=== PATIENT | male | born 1980 | race Caucasian/White ===

== ENCOUNTER 2022-10-31 07:09 | Emergency (ER) | payer OTHER ==
--- NOTE | 2022-10-31 07:29 | ED ---
Fall HPI - General Chief Complaint: Fall Stated Complaint: fall Time Seen by Provider: 10/31/22 07:26 Source: patient, RN notes reviewed Mode of arrival: ambulatory Limitations: no limitations - History of Present Illness Initial Comments: This is a 42 year old male who presents to the emergency department for a fall. States that he fell down 14 carpeted stairs approximately 35 minutes prior to arrival. States that when he stepped down, his heel hit the back of the step, he missed 3-4 steps, and then fell down the rest of the way. Denies hitting his head or any loss of consciousness. He is not on any blood thinners. Currently complaining of pain to the left shoulder and elbow. Denies hitting his head or any loss of consciousness. Denies any fevers, chills, sore throat, cough, dyspnea, chest pain, palpitations, abdominal pain, nausea, vomiting, diarrhea, back pain, or headaches. MD Complaint: fall Fall From: standing Place Fall Occurred: home Loss of Consciousness: none Prolonged Down Time?: no Symptoms Prior to Fall: none Location - Extremities: Left: Shoulder, Arm, Elbow Context: tripped/slipped - Related Data Previous Rx's Medication Instructions Recorded Ibuprofen 600 mg PO Q6H PRN #30 tab 10/31/22 Allergies Allergy/AdvReac Type Severity Reaction Status Date / Time No Known Allergies Allergy Verified 10/31/22 07:30 Review of Systems ROS Statement: Those systems with pertinent positive or pertinent negative responses have been documented in the HPI. ROS Other: All systems not noted in ROS Statement are negative. General Exam Limitations: no limitations General appearance: alert, in no apparent distress Head exam: Present: atraumatic, normocephalic, normal inspection Respiratory exam: Present: normal lung sounds bilaterally. Absent: respiratory distress, wheezes, rales, rhonchi, stridor Cardiovascular Exam: Present: regular rate, normal rhythm, normal heart sounds. Absent: systolic murmur, diastolic murmur, rubs, gallop, clicks Neurological exam: Present: alert, oriented X3, CN II-XII intact Psychiatric exam: Present: normal affect, normal mood Skin exam: Present: warm, dry, intact, normal color. Absent: rash Course Vital Signs 10/31/22 07:27 Temperature 98.2 F Pulse Rate 75 Respiratory 18 Rate Blood Pressure 154/92 O2 Sat by Pulse 100 Oximetry Medical Decision Making - Medical Decision Making This is a 42 year old male who presents to the emergency department for a fall. Was pt. sent in by a medical professional or institution? @ -No Did you speak to anyone other than the patient for history? @ -No Did you review nursing and triage notes? @ -Agree, accurate with regards to the patient's symptoms. Were old charts reviewed? @ -No Differential Diagnosis? @ -Fracture, dislocation, contusion, tendinitis, AC joint separation, rotator cuff tear, this is not meant to be an all-inclusive list. X-rays interpreted by me (1pt min.)? @ -X-ray of the chest, left elbow, and left shoulder obtained. My interpretation of the chest x-ray identifies no rib fractures. My interpretation of the x-ray of the left elbow identifies no acute fractures or dislocations. My interpretation of the left shoulder x-ray reveals an AC joint separation. What testing was considered but not performed? (CT, X-rays, U/S, labs)? Why? @ -None What meds were considered but not given? Why? @ -None Did you discuss the management of the patient with other professionals? @ -No Did you reconcile home meds? @ -No Was smoking cessation discussed for >3mins.? @ -No Was critical care preformed (if so, how long)? @ -No Were there social determinants of health that impacted care today? How? (Homelessness, low income, unemployed, alcoholism, drug addiction, transportation, low edu. Level, literacy, decrease access to med. care, [facility], rehab)? @ -Hx of drug addiction. Was there de-escalation of care discussed even if they declined? (Discuss DNR or withdrawal of care, Hospice)? @ -No What co-morbidities impacted this encounter? (DM, HTN, Smoking, COPD, CAD, Cancer, CVA, Hep., AIDS, mental health diagnosis, sleep apnea, morbid obesity)? @ -None Was patient admitted / discharged? @ -Discharged. X-rays of the chest, left elbow, and left shoulder obtained. Findings consistent with a grade 1 AC joint separation. Patient was given IM Toradol, which he states dulled the pain. Narcotics avoided due to the patient's history of drug abuse. Findings discussed with the patient, in that this often heals on its own, however it may take several weeks. He is instructed to apply ice and take anti-inflammatories. Rx for ibuprofen provided with dosing instructions reviewed. He is advised to alternate taking this with Tylenol. Advised that moving the shoulder will hurt, and he should be cautious with any excessive movements. However, he needs to avoid complete restriction of movement due to the risk of a frozen shoulder. Information for orthopedic follow-up provided, he is instructed to contact them for an appointment. Drug Therapy requiring intensive monitoring for toxicity (Heparin, Nitro, Insulin, Cardizem)? @ -None Were any procedures done? @ -None Diagnosis/symptom? @ -Left AC joint separation Acute, or Chronic, or Acute on Chronic? @ -Acute Uncomplicated (without systemic symptoms) or Complicated (systemic symptoms)? @ -Uncomplicated Side effects of treatment? @ -None Exacerbation, Progression, or Severe Exacerbation] @ -Not applicable Poses a threat to life or bodily function? @ -Will impact his ability to move his left shoulder. Return precautions reviewed in depth, the patient is instructed to return to the emergency department with any new, worsening, or concerning symptoms. Patient verbalized understanding. This case was discussed in detail with the attending ED physician, Dr. Pascal. Presentation, findings, and treatment plan discussed in detail as well. - Radiology Data Radiology results: report reviewed, image reviewed Disposition Clinical Impression: Separation of left acromioclavicular joint, type 1 Disposition: HOME SELF-CARE Instructions (If sedation given, give patient instructions): Acromioclavicular Separation (ED), How to Use a Sling (ED) Additional Instructions: Return to the emergency department with any new, worsening, or concerning symptoms. You can take the ibuprofen up to every 6 hours as needed for pain. You can also purchase it [id number] if you run out. Please alternate taking this with Tylenol. Apply ice for 15-20 minutes every 2-3 hours. Contact orthopedics as listed below for a follow up appointment and reevaluation of symptoms. Follow up with your primary care provider in 1-2 days. Prescriptions: Ibuprofen 600 mg PO Q6H PRN #30 tab PRN Reason: Pain Is patient prescribed a controlled substance at d/c from ED?: No Referrals: None,Stated [Primary Care Provider] - 1-2 days Ed oCle MD [Medical Doctor] - 1-2 days
[2022-10-31 07:30] VITALS: TEMP 98.2
[2022-10-31] MEDS ORDERED: KETOROLAC 15 MG/ML 1 ML VIAL IM STA (07:33)
--- NOTE | 2022-10-31 08:25 | XR ---
EXAMINATION TYPE: XR chest 2V DATE OF EXAM: 10/31/2022 COMPARISON: None INDICATION: Fall down stairs TECHNIQUE: Frontal and lateral views of the chest are obtained. FINDINGS: The heart size is normal. The pulmonary vasculature is normal. The lungs are clear. No pneumothorax is evident. No displaced rib fractures are. IMPRESSION: 1. No acute posttraumatic changes within the thorax. 2. Acromioclavicular joint separation left shoulder. Please see left shoulder dictation same date.
--- NOTE | 2022-10-31 08:27 | XR ---
EXAMINATION TYPE: XR shoulder complete LT DATE OF EXAM: 10/31/2022 COMPARISON: NONE HISTORY: Pain, fall down stairs TECHNIQUE: Shoulder examined in 3 projections FINDINGS: The humeral head articulates with the glenoid. There is separation of the acromioclavicular junction measuring 1.1 cm. Normal less than 1.0 cm. This appears to change size during the examination. There are small calcifications at the distal clavicle which appear to be chronic. Depression of the acromion in relation to the distal clavicle is evident some images. Findings can be compatible with acute left acromioclavicular joint separation. No acute fractures are evident. A follow up study can be performed 7-10 days from acute trauma for continued pain. IMPRESSION: 1. Grade 1 Acromioclavicular joint separation.
--- NOTE | 2022-10-31 08:28 | XR ---
EXAMINATION TYPE: XR elbow complete LT DATE OF EXAM: 10/31/2022 COMPARISON: None HISTORY: Fall down stairs, pain TECHNIQUE: 3 view left elbow FINDINGS: Anterior fat pad is normal. No elevation of posterior fat pad is evident. Radius aligns nor emil with the humerus. Soft tissues appear within normal limits. Follow up exams can be performed 7-10 days from acute trauma for continued pain. IMPRESSION: 1. No acute osseous abnormality of the left elbow
[2022-10-31 14:02] VITALS: BP 141/96; PULSE 64; RESP 14
== END 2022-10-31 09:10 | disposition home or self-care (01) ==
LOC: EC 07:09
DX: S43.102A Unspecified dislocation of left acromioclavicular joint, initial encounter (principal); W10.9XXA Fall (on) (from) unspecified stairs and steps, initial encounter
CPT/HCPCS: 73030; 73080; 71046; 99283; 96372; J1885

== ENCOUNTER 2023-02-16 12:23 | Observation (INO) | payer OTHER ==
[2023-02-16] MEDS ORDERED: ASPIRIN 81 MG PO STA (13:21)
[2023-02-16] MEDS ORDERED: SODIUM CHLORIDE 0.9% 1,000 ML IV STA (13:21)
--- NOTE | 2023-02-16 13:58 | ED ---
General Adult HPI - General Chief complaint: Recheck/Abnormal Lab/Rx Stated complaint: High BP Time Seen by Provider: 02/16/23 12:57 Source: patient, RN notes reviewed Mode of arrival: ambulatory Limitations: no limitations - History of Present Illness Initial comments: 43-year-old male presents emergency Department chief complaint of hypertension, chest discomfort. Patient states she started having chest pressure last night he states his blood pressure was elevated. Patient recently started on lisinopril 5 mg. Patient states that his chest pressure has subsided he states he still feels off his blood pressure is noted to be elevated. No prior cardiac disease. He states that his blood pressure is elevated secondary to drug abuse. Clean for a while. Patient denies any fevers chills currently symptoms. - Related Data Home Medications Medication Instructions Recorded Confirmed SUMAtriptan succinate [Imitrex] 50 mg PO DAILY PRN 02/16/23 02/16/23 lisinopriL [Zestril] 5 mg PO DAILY 02/16/23 02/16/23 Allergies Allergy/AdvReac Type Severity Reaction Status Date / Time No Known Allergies Allergy Verified 02/16/23 12:38 Review of Systems ROS Statement: Those systems with pertinent positive or pertinent negative responses have been documented in the HPI. ROS Other: All systems not noted in ROS Statement are negative. Past Medical History Past Medical History: Hypertension History of Any Multi-Drug Resistant Organisms: None Reported Additional Past Surgical History / Comment(s): right shoulder, oral surgery, facial surgery. Past Psychological History: No Psychological Hx Reported Smoking Status: Vaper Past Alcohol Use History: None Reported Past Drug Use History: Cocaine, Methamphetamine General Exam Limitations: no limitations General appearance: alert, in no apparent distress Head exam: Present: atraumatic, normocephalic, normal inspection Eye exam: Present: normal appearance, PERRL, EOMI. Absent: scleral icterus, conjunctival injection, periorbital swelling ENT exam: Present: normal exam, normal oropharynx, mucous membranes moist Neck exam: Present: normal inspection, full ROM. Absent: tenderness, meningismus, lymphadenopathy Respiratory exam: Present: normal lung sounds bilaterally. Absent: respiratory distress, wheezes, rales, rhonchi, stridor Cardiovascular Exam: Present: regular rate, normal rhythm, normal heart sounds. Absent: systolic murmur, diastolic murmur, rubs, gallop, clicks GI/Abdominal exam: Present: soft, normal bowel sounds. Absent: distended, tenderness, guarding, rebound, rigid Course Vital Signs 02/16/23 02/16/23 02/16/23 12:38 14:02 14:12 Temperature 98.8 F 98.0 F Pulse Rate 83 67 Pulse Rate [ 61 Drug Regulatory Affairs Specialist ] Respiratory 18 18 Rate Blood Pressure 159/131 162/119 O2 Sat by Pulse 98 97 Oximetry 02/16/23 14:54 Temperature 97.8 F Pulse Rate 59 L Pulse Rate [ Drug Regulatory Affairs Specialist ] Respiratory 19 Rate Blood Pressure 163/111 O2 Sat by Pulse 100 Oximetry EKG Findings - EKG Comments: EKG Findings:: EKG performed at 14:06 sinus rhythm rate of 60 TX 160 QRS 15 QT/QTC 408/408 - EKG Results: EKG: interpreted by KATIE Medical Decision Making - Medical Decision Making Was pt. sent in by a medical professional or institution (, PA, DEPUTY JAILER, urgent care, hospital, or halfway...) When possible be specific @ -No Did you speak to anyone other than the patient for history (EMS, parent, family, police, friend...)? What history was obtained from this source @ -No Did you review nursing and triage notes (agree or disagree)? Why? @ -I reviewed and agree with nursing and triage notes Were old charts reviewed (outside hosp., previous admission, EMS record, old EKG, old radiological studies, urgent care reports/EKG's, halfway records)? Report findings @ -No old charts were reviewed Differential Diagnosis (chest pain, altered mental status, abdominal pain women, abdominal pain men, vaginal bleeding, weakness, fever, dyspnea, syncope, headache, dizziness, GI bleed, back pain, seizure, CVA, palpatations, mental health, musculoskeletal)? @ -Differential Chest Pain: Stable Angina, Unstable Angina, STEMI, NSTEMI Aortic Dissection, Pneumothorax, Musculoskeletal, Esophageal Spasm GERD, Cholecystitis, Pancreatitis, Zoster, this is not meant to be an all-inclusive list. le EKG interpreted by me (3pts min.). @ -As above X-rays interpreted by me (1pt min.). @ -Chest x-ray shows no acute process. CT interpreted by me (1pt min.). @ -None done U/S interpreted by me (1pt. min.). @ -None done What testing was considered but not performed or refused? (CT, X-rays, U/S, labs)? Why? @ -None What meds were considered but not given or refused? Why? @ -None Did you discuss the management of the patient with other professionals (professionals i.e. , PA, DEPUTY JAILER, lab, RT, psych nurse, social professionals, data warehousing specialist, teacher, senior escrow officer, heel caser)? Give summary @ -No Was smoking cessation discussed for >3mins.? @ -No Was critical care preformed (if so, how long)? @ -No Were there social determinants of health that impacted care today? How? (Homelessness, low income, unemployed, alcoholism, drug addiction, transportation, low edu. Level, literacy, decrease access to med. care, group home, rehab)? @ -No Was there de-escalation of care discussed even if they declined (Discuss DNR or withdrawal of care, Hospice)? DNR status @ -No What co-morbidities impacted this encounter? (DM, HTN, Smoking, COPD, CAD, Cancer, CVA, ARF, Chemo, Hep., AIDS, mental health diagnosis, sleep apnea, morbid obesity)? @ -Drug history, smoking history Was patient admitted / discharged? Hospital course, mention meds given and route, prescriptions, significant lab abnormalities, going to OR and other pertinent info. @ -Admitted patient's had recent hypertensive issues, increasing chest pain. Patient be admitted for cardiac rule out. Undiagnosed new problem with uncertain prognosis? @ -No Drug Therapy requiring intensive monitoring for toxicity (Heparin, Nitro, Insulin, Cardizem)? @ -No Were any procedures done? @ -No Diagnosis/symptom? @ -Chest pain, hypertension Acute, or Chronic, or Acute on Chronic? @ -Acute Uncomplicated (without systemic symptoms) or Complicated (systemic symptoms)? @ -Uncomplicated Side effects of treatment? @ -No Exacerbation, Progression, or Severe Exacerbation? @ -No Poses a threat to life or bodily function? How? (Chest pain, [place], [place], pneumonia, PE, COPD, DKA, ARF, appy, cholecystitis, CVA, Diverticulitis, Homicidal, Suicidal, threat to staff... and all critical care pts) @ -No - Lab Data Result diagrams: 02/16/23 13:52 02/16/23 13:52 Lab Results 02/16/23 02/16/23 02/16/23 Range/Units 13:52 13:52 13:52 WBC 7.3 (3.8-10.6) k/uL RBC 5.44 (4.30-5.90) m/uL Hgb 16.4 (13.0-17.5) gm/dL Hct 47.6 (39.0-53.0) % MCV 87.5 (80.0-100.0) fL MCH 30.2 (25.0-35.0) pg MCHC 34.5 (31.0-37.0) g/dL RDW 13.0 (11.5-15.5) % Plt Count 331 (150-450) k/uL MPV 7.9 Neutrophils % 57 % Lymphocytes % 31 % Monocytes % 6 % Eosinophils % 4 % Basophils % 1 % Neutrophils # 4.2 (1.3-7.7) k/uL Lymphocytes # 2.3 (1.0-4.8) k/uL Monocytes # 0.5 (0-1.0) k/uL Eosinophils # 0.3 (0-0.7) k/uL Basophils # 0.0 (0-0.2) k/uL PT 10.6 (9.0-12.0) sec INR 1.0 (<1.2) APTT 26.7 (22.0-30.0) sec D-Dimer 0.25 (<0.60) mg/L FEU Sodium 138 (137-145) mmol/L Potassium 4.7 (3.5-5.1) mmol/L Chloride 104 (98-107) mmol/L Carbon Dioxide 22 (22-30) mmol/L Anion Gap 12 mmol/L BUN 15 (9-20) mg/dL Creatinine 0.83 (0.66-1.25) mg/dL Est GFR (CKD-EPI)AfAm >90 (>60 ml/min/1.73 sqM) Est GFR (CKD-EPI)NonAf >90 (>60 ml/min/1.73 sqM) Glucose 93 (74-99) mg/dL Calcium 9.3 (8.4-10.2) mg/dL Magnesium 1.9 (1.6-2.3) mg/dL Total Bilirubin 0.6 (0.2-1.3) mg/dL AST 97 H (17-59) U/L ALT 143 H (4-49) U/L Alkaline Phosphatase 85 (38-126) U/L Troponin I (0.000-0.034) ng/mL Total Protein 7.7 (6.3-8.2) g/dL Albumin 4.4 (3.5-5.0) g/dL 02/16/23 Range/Units 13:52 WBC (3.8-10.6) k/uL RBC (4.30-5.90) m/uL Hgb (13.0-17.5) gm/dL Hct (39.0-53.0) % MCV (80.0-100.0) fL MCH (25.0-35.0) pg MCHC (31.0-37.0) g/dL RDW (11.5-15.5) % Plt Count (150-450) k/uL MPV Neutrophils % % Lymphocytes % % Monocytes % % Eosinophils % % Basophils % % Neutrophils # (1.3-7.7) k/uL Lymphocytes # (1.0-4.8) k/uL Monocytes # (0-1.0) k/uL Eosinophils # (0-0.7) k/uL Basophils # (0-0.2) k/uL PT (9.0-12.0) sec INR (<1.2) APTT (22.0-30.0) sec D-Dimer (<0.60) mg/L FEU Sodium (137-145) mmol/L Potassium (3.5-5.1) mmol/L Chloride (98-107) mmol/L Carbon Dioxide (22-30) mmol/L Anion Gap mmol/L BUN (9-20) mg/dL Creatinine (0.66-1.25) mg/dL Est GFR (CKD-EPI)AfAm (>60 ml/min/1.73 sqM) Est GFR (CKD-EPI)NonAf (>60 ml/min/1.73 sqM) Glucose (74-99) mg/dL Calcium (8.4-10.2) mg/dL Magnesium (1.6-2.3) mg/dL Total Bilirubin (0.2-1.3) mg/dL AST (17-59) U/L ALT (4-49) U/L Alkaline Phosphatase (38-126) U/L Troponin I <0.012 (0.000-0.034) ng/mL Total Protein (6.3-8.2) g/dL Albumin (3.5-5.0) g/dL Disposition Clinical Impression: Chest pain Disposition: ADMITTED IP TO THIS HOSP Condition: Fair Referrals: Carlos Bush MD [Primary Care Provider] - 1-2 days Time of Disposition: 15:52
[2023-02-16] MEDS ORDERED: NITROGLYCERIN SL TABS 0.4 MG TAB SUBLINGUAL STA (14:17)
--- NOTE | 2023-02-16 14:35 | XR ---
EXAMINATION TYPE: XR chest 2V DATE OF EXAM: 02/16/2023 COMPARISON: Chest x-ray October 31, 2022 HISTORY: Chest pain. TECHNIQUE: Frontal and lateral views of the chest are obtained. FINDINGS: There is no focal air space opacity, pleural effusion, or pneumothorax seen. The cardiac silhouette size is stable and within normal limits. The osseous structures are intact. Overlying EK G leads are now present. IMPRESSION: No acute process. No significant change from prior.
[2023-02-16 14:49] LABS: Basophils % (A) 1 %; Eosinophils # (A) 0.3 k/uL (0-0.7); Eosinophils % (A) 4 %; HCT 47.6 % (39.0-53.0); HGB 16.4 gm/dL (13.0-17.5); Lymphocytes # (A) 2.3 k/uL (1.0-4.8); Lymphocytes % (A) 31 %; MCH 30.2 pg (25.0-35.0); MCHC 34.5 g/dL (31.0-37.0); MCV 87.5 fL (80.0-100.0); Mean Platelet Volume 7.9; Monocytes # (A) 0.5 k/uL (0-1.0); Monocytes % (A) 6 %; Neutrophils # (A) 4.2 k/uL (1.3-7.7); Neutrophils % (A) 57 %; Platelet Count 331 k/uL (150-450); RBC 5.44 m/uL (4.30-5.90); WBC 7.3 k/uL (3.8-10.6)
[2023-02-16 14:51] LABS: Partial Thromboplastin Time 26.7 sec (22.0-30.0); Prothrombin Time 10.6 sec (9.0-12.0)
[2023-02-16 15:32] LABS: ALT 143 U/L (4-49); AST 97 U/L (17-59); African American GFR (CKD) >90 (>60 ml/min/1.73 sqM); Albumin 4.4 g/dL (3.5-5.0); Alkaline Phosphatase 85 U/L (38-126); Anion Gap 12 mmol/L; Blood Urea Nitrogen 15 mg/dL (9-20); Calcium 9.3 mg/dL (8.4-10.2); Carbon Dioxide 22 mmol/L (22-30); Chloride 104 mmol/L (98-107); Glucose 93 mg/dL (74-99); Magnesium 1.9 mg/dL (1.6-2.3); Non-African American GFR(CKD) >90 (>60 ml/min/1.73 sqM); Potassium 4.7 mmol/L (3.5-5.1); Sodium 138 mmol/L (137-145); Total Bilirubin 0.6 mg/dL (0.2-1.3); Total Protein 7.7 g/dL (6.3-8.2)
[2023-02-16] MEDS ORDERED: NITROGLYCERIN SL TABS 0.4 MG TAB SUBLINGUAL PRN (15:52)
[2023-02-16] MEDS ORDERED: ACETAMINOPHEN TAB 500 MG TAB PO STA (17:35)
[2023-02-16] MEDS ORDERED: SUMAtriptan succinate 50 MG TAB PO PRN (21:07)
[2023-02-16] MEDS: lisinopriL 20 MG TAB PO SCH (22:07)
[2023-02-17 08:16] VITALS: RESP 16
[2023-02-17] MEDS ORDERED: ACETAMINOPHEN TAB 325 MG TAB PO PRN (08:18)
[2023-02-17] MEDS: lisinopriL 20 MG TAB PO SCH (08:29)
[2023-02-17 08:55] LABS: Chol/HDL Ratio 3.73 Ratio; LDL Cholesterol,Calculated 83.8 mg/dL (0.0-131.0); VLDL Calculation 12.78 mg/dL (5.00-40.00)
[2023-02-17] MEDS ORDERED: ASPIRIN 325 MG TAB PO SCH ×2 (09:00)
[2023-02-17] MEDS ORDERED: lisinopriL 10 MG TAB PO SCH (09:00)
--- NOTE | 2023-02-17 10:32 | P.CRDCN ---
History of Present Illness Consult date: 02/17/23 Consult reason: chest pain History of present illness: History of present illness: This is a 43 year old male patient with past medical history of hypertension, migraine headaches, history of multi drug abuse and alcohol abuse. Patient denies having any previous cardiac history. We have been asked to evaluate the patient for chest pain. Patient complains of tightness across his chest he was not able to sleep because of it. Also complaining of headache. He felt that his heart was racing. When patient presented to the emergency center his blood pressure was 159/131. Patient was given higher dose of lisinopril 20 mg last evening and blood pressure this morning is 108/69. Patient does have some pressure to the chest with deep breathing and he continues to have a headache on evaluation this morning. He last used drugs and alcohol in April 2022 as well as he quit smoking in July 2022. Family history of both parents having coronary artery disease with stent placement in the 40s and 50s. EKG sinus rhythm with no acute ST changes Chest x-ray: No acute process CBC within normal limits. D-dimer 0.25. Electrolytes and renal function within normal limits. AST 97 and ALT 143. Troponin negative 3. Triglycerides 63, cholesterol 132, LDL 83, HDL 35. Home cardiac medications: Lisinopril 5 mg daily Review Of Systems: At the time of my evaluation: Constitutional: No fever, no chills. No weakness, fatigue or lethargy. EENT: Reports headache. No dizziness. Lungs: No shortness of breath, cough, no sputum production. No wheezing. Cardiovascular: Minimal chest pain, no lower extremity edema. No palpitations. No paroxysmal nocturnal dyspnea. No orthopnea. No lightheadedness or dizziness. No syncopal episodes. Abdominal: No abdominal pain. No nausea, vomiting. No diarrhea. No constipation. No bloody or tarry stools. Musculoskeletal: No myalgias. No muscle weakness, no frequent falls. No back pain. No neck pain. Integumentary: No wounds. No rash. No unusual bruising. Neurologic: No aphasia. No facial droop. No change in mentation. No head injury. Reports headache. Physical examination: Gen: This is a 43-year-old thin male. He is resting but appears to be comfortable and in no acute distress. VS: reviewed HEENT: Head is atraumatic, normocephalic. Pupils equal, round. Sclerae is anicteric. Patient edentulous. NECK: Supple. No JVD. . LUNGS: Clear to auscultation. No wheezes or rhonchi. No intercostal retractions. HEART: Regular rate and rhythm. No murmur. ABDOMEN: Soft No tenderness. EXTREMITIES: No pedal edema. No calf tenderness. NEUROLOGICAL: Patient is awake, alert and oriented x3. Assessment: Chest pain, acute coronary syndrome ruled out. Chest pain most likely musculoskeletal in etiology Hypertension urgency History of hypertension Migraine headaches History of multi drug and alcohol abuse History of tobacco use Plan: Continue lisinopril at 10 mg daily Obtain stress echocardiogram today Obtain 2-D echocardiogram and Doppler study to assess cardiac structure and function - report is pending If echocardiogram and stress test unremarkable, patient is cleared for discharge home from cardiology perspective. Thank you kindly for this consultation. Nurse practitioner note has been reviewed, I agree with documented findings and plan of care. Patient was seen and examined. Past Medical History Past Medical History: Hypertension History of Any Multi-Drug Resistant Organisms: None Reported Additional Past Surgical History / Comment(s): right shoulder, oral surgery, facial surgery. Past Psychological History: No Psychological Hx Reported Smoking Status: Vaper Past Alcohol Use History: None Reported Past Drug Use History: Cocaine, Methamphetamine Medications and Allergies Home Medications Medication Instructions Recorded Confirmed Type SUMAtriptan succinate [Imitrex] 50 mg PO DAILY PRN 02/16/23 02/16/23 History lisinopriL [Zestril] 5 mg PO DAILY 02/16/23 02/16/23 History Allergies Allergy/AdvReac Type Severity Reaction Status Date / Time No Known Allergies Allergy Verified 02/16/23 12:38 Physical Exam Vitals: Vital Signs Temp Pulse Pulse Pulse Resp BP BP 02/17/23 07:00 97.7 F 61 16 108/69 02/17/23 02:39 98.2 F 50 L 17 116/75 02/16/23 20:30 97.9 F 86 17 161/81 02/16/23 19:31 98.0 F 63 17 147/101 02/16/23 17:30 98.2 F 64 18 153/109 02/16/23 16:18 64 17 140/106 02/16/23 14:54 97.8 F 59 L 19 163/111 02/16/23 14:12 61 02/16/23 14:02 98.0 F 67 18 162/119 02/16/23 12:38 98.8 F 83 18 159/131 Pulse Ox 02/17/23 07:00 96 02/17/23 02:39 98 02/16/23 20:30 98 02/16/23 19:31 97 02/16/23 17:30 97 02/16/23 16:18 98 02/16/23 14:54 100 02/16/23 14:12 02/16/23 14:02 97 02/16/23 12:38 98 Intake and Output 02/16/23 02/17/23 02/17/23 22:59 06:59 14:59 Other: # Voids 1 2 Weight 72.575 kg Results 02/16/23 13:52 02/16/23 13:52 Cardiac Enzymes 02/16/23 02/16/23 02/16/23 Range/Units 13:52 13:52 16:35 AST 97 H (17-59) U/L Troponin I <0.012 <0.012 (0.000-0.034) ng/mL 02/16/23 Range/Units 21:06 AST (17-59) U/L Troponin I <0.012 (0.000-0.034) ng/mL Coagulation 02/16/23 Range/Units 13:52 PT 10.6 (9.0-12.0) sec APTT 26.7 (22.0-30.0) sec CBC 02/16/23 Range/Units 13:52 WBC 7.3 (3.8-10.6) k/uL RBC 5.44 (4.30-5.90) m/uL Hgb 16.4 (13.0-17.5) gm/dL Hct 47.6 (39.0-53.0) % Plt Count 331 (150-450) k/uL Comprehensive Metabolic Panel 02/16/23 Range/Units 13:52 Sodium 138 (137-145) mmol/L Potassium 4.7 (3.5-5.1) mmol/L Chloride 104 (98-107) mmol/L Carbon Dioxide 22 (22-30) mmol/L BUN 15 (9-20) mg/dL Creatinine 0.83 (0.66-1.25) mg/dL Glucose 93 (74-99) mg/dL Calcium 9.3 (8.4-10.2) mg/dL AST 97 H (17-59) U/L ALT 143 H (4-49) U/L Alkaline Phosphatase 85 (38-126) U/L Total Protein 7.7 (6.3-8.2) g/dL Albumin 4.4 (3.5-5.0) g/dL Current Medications Generic Name Dose Route Start Last Admin Trade Name Freq PRN Reason Stop Dose Admin Acetaminophen 650 mg 02/17/23 08:18 Acetaminophen Tab 325 Mg Tab PO Q6HR PRN Fever and/ or Pain Aspirin 325 mg 02/17/23 09:00 Aspirin 325 Mg Tab PO DAILY FLAKO Lisinopril 20 mg 02/16/23 21:15 02/16/23 22:07 Lisinopril 20 Mg Tab PO 20 mg DAILY FLAKO Administration Nitroglycerin 0.4 mg 02/16/23 15:52 Nitroglycerin Sl Tabs 0.4 Mg Tab SUBLINGUAL Q5M PRN Chest Pain Sumatriptan Succinate 50 mg 02/16/23 21:07 02/16/23 22:07 Sumatriptan Succinate 50 Mg Tab PO 50 mg DAILY PRN Administration Migraine Headache Intake and Output 02/16/23 02/17/23 02/17/23 22:59 06:59 14:59 Other: # Voids 1 2 Weight 72.575 kg 02/16/23 13:52 02/16/23 13:52
--- NOTE | 2023-02-17 12:37 | P.HPIM ---
History of Present Illness H&P Date: 02/17/23 This is a 42-year-old male who presented to the emergency department with hypertension. Patient reports he just started on hypertensive medications lisinopril last week with his primary care provider Dr. Bush. Patient reports significant past medical history of IV and other illicit drug abuse although has been clean for 9 months. Patient denies tobacco use alcohol or any other drug use. Patient evaluated by cardiology recommending stress test along with echo which is currently pending. Troponin 3 has been negative and labs within normal limits. Chest x-ray shows no acute process and EKG was within normal limits Review Of Systems: Constitutional: No fever, no chills, no night sweats. No weight change. No weakness, fatigue or lethargy. No daytime sleepiness. EENT: No headache. No blurred vision or double vision, no loss of vision. No loss of Hearing, no ringing in the ears, no dizziness. No nasal drainage or congestion. No epistaxis. No sore throat. Lungs: No shortness of breath, cough, no sputum production. No wheezing. Cardiovascular: Reports chest pain, no lower extremity edema. No palpitations. No paroxysmal nocturnal dyspnea. No orthopnea. No lightheadedness or dizziness. No syncopal episodes. Abdominal: No abdominal pain. No nausea, vomiting. No diarrhea. No constipation. No bloody or tarry stools.. No loss of appetite. Genitourinary: No dysuria, increased frequency, urgency. No urinary retention. Musculoskeletal: No myalgias. No muscle weakness, no gait dysfunction, no frequent falls. No back pain. No neck pain. Integumentary: No wounds, no lesions. No rash or pruritus. No unusual bruising. No change in hair or nails. Neurologic: No aphasia. No facial droop. No change in mentation. No head injury. No headache. No paralysis. No paresthesia. Psychiatric: No depression. No anxiety. No mood swings. Endocrine: No abnormal blood sugars. No weight change. No excessive sweating or thirst. No cold intolerance. PHYSICAL EXAMINATION: GENERAL: The patient is alert and oriented x4, Well developed, well nourished. HEENT: Pupils are round and equally reacting to light. EOMI. no scleral icterus. No conjunctival pallor. Normocephalic, atraumatic. No pharyngeal erythema. No thyromegaly. CARDIOVASCULAR: S1 and S2 muffled PULMONARY: Chest is clear to auscultation with no wheezing or rhonchi noted. ABDOMEN: soft. Nontender on exam. non-distended, normoactive bowel sounds. No palpable organomegaly. MUSCULOSKELETAL: No joint swelling or deformity. EXTREMITIES: No cyanosis, clubbing, or pedal edema. NEUROLOGICAL: Gross neurological examination did not reveal any focal deficits. SKIN: No rashes. Multiple tattoos noted Assessment: Chest pain, ruled out ACS Hypertension recently started on lisinopril last week Previous history of IV drug abuse as well as marijuana and drinking Former smoker GI prophylaxis DVT prophylaxis Full code Plan: Recommend to continue with current medications and management with cardiology following. Recommending stress test along with echo which will be done this morning is currently pending recommend telemetry monitoring Recent diagnosis of hypertension although patient is on the lower side and somewhat normotensive recommend adjusting medications Will await stress echo with cardiology clearance and most likely discharge today The impression and plan of care has been dictated by Ashanti Azar, nurse practitioner as directed. Dr. Bill MD I have performed a history and examination and MDM of this patient, discussed the same with the dictator, and agree with the dictator's assessment and plan as written ,documented as a scribe. Based on total visit time, I have performed more than 50% of the visit. Any additional findings or plans will be noted. Past Medical History Past Medical History: Hypertension History of Any Multi-Drug Resistant Organisms: None Reported Additional Past Surgical History / Comment(s): right shoulder, oral surgery, facial surgery. Past Psychological History: No Psychological Hx Reported Smoking Status: Vaper Past Alcohol Use History: None Reported Past Drug Use History: Cocaine, Methamphetamine Medications and Allergies Home Medications Medication Instructions Recorded Confirmed Type SUMAtriptan succinate [Imitrex] 50 mg PO DAILY PRN 02/16/23 02/16/23 History lisinopriL [Zestril] 5 mg PO DAILY 02/16/23 02/16/23 History Allergies Allergy/AdvReac Type Severity Reaction Status Date / Time No Known Allergies Allergy Verified 02/16/23 12:38 Physical Exam Vitals: Vital Signs Temp Pulse Pulse Pulse Resp BP BP 02/17/23 07:00 97.7 F 61 16 108/69 02/17/23 02:39 98.2 F 50 L 17 116/75 02/16/23 20:30 97.9 F 86 17 161/81 02/16/23 19:31 98.0 F 63 17 147/101 02/16/23 17:30 98.2 F 64 18 153/109 02/16/23 16:18 64 17 140/106 02/16/23 14:54 97.8 F 59 L 19 163/111 02/16/23 14:12 61 02/16/23 14:02 98.0 F 67 18 162/119 02/16/23 12:38 98.8 F 83 18 159/131 Pulse Ox 02/17/23 07:00 96 02/17/23 02:39 98 02/16/23 20:30 98 02/16/23 19:31 97 02/16/23 17:30 97 02/16/23 16:18 98 02/16/23 14:54 100 02/16/23 14:12 02/16/23 14:02 97 02/16/23 12:38 98 Intake and Output 02/16/23 02/17/23 02/17/23 22:59 06:59 14:59 Other: # Voids 1 2 Weight 72.575 kg Results CBC & Chem 7: 02/16/23 13:52 02/16/23 13:52 Labs: Abnormal Lab Results - Last 24 Hours (Table) 02/16/23 02/17/23 Range/Units 13:52 06:03 AST 97 H (17-59) U/L ALT 143 H (4-49) U/L HDL Cholesterol 35.40 L (40.00-60.00) mg/dL Assessment and Plan Time with Patient: Greater than 30
--- NOTE | 2023-02-17 12:58 | CA ---
Transthoracic Echo Report Name: Uli rFiedman Age: 43 Gender: M : 1980 Exam Date: 02/17/2023 07:47 Exam Location: [facility] Ht (in): 68 Wt (lb): 165 Ordering Physician: Diogenes Wasserman PAC Attending/Referring Phys: [id number], Lisy Cardiopulmonary Technician Lev Soni RDCS Procedure CPT: Indications: Chest Pain Cardiac Hx: HTN; CP; SOB Technical Quality: Fair Contrast 1: Total Dose (mL): Contrast 2: Total Dose (mL): MEASUREMENTS (Male / Female) Normal Values 2D ECHO LV Diastolic Diameter PLAX 3.5 cm 4.2 - 5.9 / 3.9 - 5.3 cm LV Systolic Diameter PLAX 2.2 cm LV Fractional Shortening PLAX 38.8 % IVS Diastolic Thickness 1.3 cm 0.6 - 1.0 / 0.6 - 0.9 cm IVS Systolic Thickness 1.8 cm LVPW Diastolic Thickness 1.4 cm 0.6 - 1.0 / 0.6 - 0.9 cm LVPW Systolic Thickness 1.6 cm LV Relative Wall Thickness 0.8 RV Internal Dim ED PLAX 2.9 cm LVOT Diameter 2.0 cm LA Systolic Diameter LX 2.9 cm 3.0 - 4.0 / 2.7 - 3.8 cm LV Diastolic Volume MOD BP 70.2 cm??? 67 - 155 / 56 - 104 cm??? LV Systolic Volume MOD BP 22.3 cm??? 22 - 58 / 19 - 49 cm??? LV Ejection Fraction MOD BP 68.3 % >= 55 % LV Stroke Volume MOD BP 48.0 cm??? LV Diastolic Volume MOD 4C 63.0 cm??? LV Systolic Volume MOD 4C 19.8 cm??? LV Ejection Fraction MOD 4C 68.6 % LV Stroke Volume MOD 4C 43.3 cm??? LV Diastolic Length 4C 6.1 cm LV Systolic Length 4C 5.0 cm LV Diastolic Volume MOD 2C 72.9 cm??? LV Systolic Volume MOD 2C 24.4 cm??? LV Ejection Fraction MOD 2C 66.5 % LV Stroke Volume MOD 2C 48.5 cm??? LV Diastolic Length 2C 6.5 cm LV Systolic Length 2C 4.8 cm Ascending Aorta Diameter 3.4 cm M-MODE Aortic Root Diameter MM 2.8 cm LA Systolic Diameter MM 3.2 cm LA Ao Ratio MM 1.1 MV E Point Septal Separation 0.6 cm AV Cusp Separation MM 1.7 cm DOPPLER AV Peak Velocity 117.2 cm/s AV Peak Gradient 5.5 mmHg LVOT Peak Velocity 104.5 cm/s LVOT Peak Gradient 4.4 mmHg AV Area Cont Eq pk 2.8 cm??? MV Deceleration [place] 373.7 cm/s??? Mitral E Point Velocity 75.6 cm/s Mitral A Point Velocity 44.2 cm/s Mitral E to A Ratio 1.7 MV Deceleration Time 202.2 ms MV E' Velocity 8.7 cm/s Mitral E to MV E' Ratio 8.6 TR Peak Velocity 120.6 cm/s TR Peak Gradient 5.8 mmHg Right Ventricular Systolic Press 13.8 mmHg PV Peak Velocity 73.2 cm/s PV Peak Gradient 2.1 mmHg FINDINGS Left Ventricle Left vleft ventricular cavity size normal. Normal left ventricular diastolic filling pattern. entricular ejection fraction is estimated at 55-60 %. Mild concentric left ventricular hypertrophy. Right Ventricle Mild right ventricular dilatation. Right Atrium Mild right atrial dilatation. Left Atrium Normal left atrial size. Mitral Valve Structurally normal mitral valve. No mitral stenosis. Mild mitral regurgitation. Aortic Valve Trileaflet aortic valve. Trace aortic regurgitation. No aortic stenosis. Tricuspid Valve Mild tricuspid regurgitation.structurally normal tricuspid valve. Pulmonic Valve Trace to mild pulmonic regurgitation. Pericardium Normal pericardium. No pericardial effusion. Aorta Normal size aortic root and proximal ascending aorta. CONCLUSIONS 1. Normal left ventricle size and systolic function 2. Mild mitral and tricuspid regurgitation with trace aortic regurgitation. Previewed by: Dr. Brady Mejia MD (Electronically Signed) Final Date: 17 Feb 2023 12:57
--- NOTE | 2023-02-17 13:07 | CA ---
Stress Echo Report Uli Friedman Age: 43 Gender: M : 1980 Exam Date: 02/17/2023 10:53 Exam Location: [facility] Ht (in): 68 Wt (lb): 160 Ordering Physician: Kim Santana Referring Physician: [id number] Electronic Gluing Machine Operator: Kate Castellon RDCS Technologist Procedure CPT: Indication: CP ICD-9 Codes: Rhythm: Patient History: CHEST PAIN, DIFFICULTY IN BREATHING, PALPITATIONS, HTN, FAMILY HX OF HEART DISEASE, PRIOR SMOKER - QUIT 6 MOS (1.5 PPD X 35 YEARS), COPD Cardiac Medications: Medications in past 24 hours: Contrast: Stress Results Protocol: Grant Total dose(mL): Exercise Duration (min:sec): Max ST Depression (mm): Angina Score: Dumont Score: METS: 11.1 Resting HR: 71 Resting BP: 114 / 64 Peak HR: 162 Peak BP: 202 / 90 Max Predicted HR: 177 92 % Max Predicted HR Target HR: 150 Double Product: [id number] Stress Summary: The patient's target heart rate was achieved BP Response: Normal Reason for Termination: TARGET HR/FATIGUE Cardiac Symptoms: HEAD PRESSURE ECG Analysis Resting ECG: Normal sinus rhythm, normal ECG Stress ECG: No abnormal ST/T wave changes with exercise Arrhythmia: None Echo Analysis Resting Echo: Normal resting echocardiogram. Peak Echo Analysis: Normal wall thickening and motion with decreased cavity size MEASUREMENTS (Male/Female) Normal Values CONCLUSIONS 1. Good exercise tolerance with normal electrocardiographic response to exercise 2. Normal stress echocardiogram with no evidence of stress- induced ischemia Dr. Brady Mejia MD (Electronically Signed) Final Date: 17 Feb 2023 13:07
[2023-02-17 14:37] VITALS: BP 124/88; PULSE 98; TEMP 97.6
[2023-02-18] MEDS ORDERED: ASPIRIN 81 MG PO SCH (09:00)
--- NOTE | 2023-02-19 13:38 | P.DS ---
Providers Date of admission: 02/16/23 16:02 Expected date of discharge: 02/17/23 Attending physician: Carlos Bush Consults: 02/16/23 15:52 Consult Physician Urgent Consulting Provider: Cedric Drew Consult Reason/Comments: chest pain Do you want consulting provider notified?: Yes Primary care physician: Carlos Bush Hospital Course: Final diagnosis Chest pain, ruled out ACS normal stress testing Hypertension recently started on lisinopril last week Previous history of IV drug abuse as well as marijuana and drinking Former smoker GI prophylaxis DVT prophylaxis Full code Discharge disposition Patient is being discharged in a stable condition with guarded prognosis to home. Patient will follow-up with Dr. Bush in the outpatient setting upon discharge. Patient is to continue with current medications as mentioned below and outpatient follow-up with cardiology as scheduled. Total time taken is greater than 35 minutes. Hospital course This is a 43-year-old male who was recently admitted chest pain and being evaluated by cardiology. Patient underwent stress testing which was normal and has been cleared by cardiology. Patient to continue on lisinopril 5 mg daily for hypertension and outpatient follow-up with primary care provider as well as cardiology. Patient also being started on an aspirin. Please refer to cardiology notes for further HPI. Currently no reports of chest pain, shortness of breath, or palpitations. Patient is afebrile. No reports of nausea or vomiting and patient is tolerating diet. Patient will be discharged home today. Physical exam: Gen: This is a 43-year-old male who is awake, alert and oriented 3, thin built, well-developed HEENT: Head is atraumatic, normocephalic. Pupils equal, round. Sclerae is an icteric. NECK: Supple. No JVD. No lymphadenopathy. No thyromegaly. LUNGS: Clear to auscultation. No wheezes or rhonchi. No intercostal retractions. HEART: Regular rate and rhythm. No murmur. ABDOMEN: Soft. Bowel sounds are present. No masses. No tenderness. EXTREMITIES: No pedal edema. No calf tenderness. NEUROLOGICAL: Patient is awake, alert and oriented x3. Cranial nerves 2 through 12 are grossly intact. Please refer to medication reconciliation sheet for a list of medications. The impression and plan of care has been dictated by Ashanti Azar, Nurse Practitioner as directed. MD Raymundo I have performed a history and examination and MDM of this patient, discussed the same with the dictator, and agree with the dictator's assessment and plan as written ,documented as a scribe. Based on total visit time, I have performed more than 50% of the visit. Patient Condition at Discharge: Fair Plan - Discharge Summary New Discharge Prescriptions: New Aspirin 81 mg PO DAILY #30 tab Nitroglycerin Sl Tabs [Nitrostat] 0.4 mg SUBLINGUAL Q5M PRN #20 tab PRN Reason: Chest Pain Acetaminophen Tab [Tylenol] 650 mg PO Q6HR PRN tab PRN Reason: Fever And/ Or Pain Continue lisinopriL [Zestril] 5 mg PO DAILY SUMAtriptan succinate [Imitrex] 50 mg PO DAILY PRN PRN Reason: Migraine Headache Discharge Medication List SUMAtriptan succinate [Imitrex] 50 mg PO DAILY PRN 02/16/23 [History] lisinopriL [Zestril] 5 mg PO DAILY 02/16/23 [History] Acetaminophen Tab [Tylenol] 650 mg PO Q6HR PRN tab 02/17/23 [Rx] Aspirin 81 mg PO DAILY #30 tab 02/17/23 [Rx] Nitroglycerin Sl Tabs [Nitrostat] 0.4 mg SUBLINGUAL Q5M PRN #20 tab 02/17/23 [Rx] Follow up Appointment(s)/Referral(s): Carlos Bush MD [Primary Care Provider] - 1-2 days Cedric Drew MD [STAFF PHYSICIAN] - 1 Week (Office will call with appointment time and date.) Activity/Diet/Wound Care/Special Instructions: Activities Limited until follow-up Follow-up with primary care provider on discharge Follow-up cardiology outpatient Continue taking medications as prescribed Discharge Disposition: HOME SELF-CARE
== END 2023-02-17 14:47 | disposition home or self-care (01) ==
LOC: EC 12:23 → 6NMEDSUR 16:02
PROVIDERS: ADMIT Family Medicine; ATTEND Family Medicine
DX: R07.89 Other chest pain (principal); I16.0 Hypertensive urgency; I10 Essential (primary) hypertension; G43.909 Migraine, unspecified, not intractable, without status migrainosus; Z79.899 Other long term (current) drug therapy; Z87.891 Personal history of nicotine dependence; Z87.898 Personal history of other specified conditions; Z98.890 Other specified postprocedural states; Z82.49 Family history of ischemic heart disease and other diseases of the circulatory system
CPT/HCPCS: 96360; 99284; 36415; 93005; 93306; 93351; 85379; 80061; 80053; 83735; 84484; 85025; 85610; 85730; 71046; G0378 ×2

== ENCOUNTER 2023-03-29 12:03 | Observation (INO) | payer OTHER ==
[2023-03-29] MEDS ORDERED: SODIUM CHLORIDE 0.9% 1,000 ML IV STA (12:38)
[2023-03-29] MEDS ORDERED: ASPIRIN 325 MG TAB PO STA (12:46)
[2023-03-29] MEDS ORDERED: KETOROLAC 15 MG/ML 1 ML VIAL IVP STA (12:47)
[2023-03-29 13:05] LABS: Basophils % (A) 0 %; Eosinophils # (A) 0.2 k/uL (0-0.7); Eosinophils % (A) 3 %; HCT 42.3 % (39.0-53.0); HGB 14.5 gm/dL (13.0-17.5); Lymphocytes # (A) 1.8 k/uL (1.0-4.8); Lymphocytes % (A) 23 %; MCH 30.3 pg (25.0-35.0); MCHC 34.2 g/dL (31.0-37.0); MCV 88.5 fL (80.0-100.0); Mean Platelet Volume 6.9; Monocytes # (A) 0.5 k/uL (0-1.0); Monocytes % (A) 6 %; Neutrophils # (A) 5.1 k/uL (1.3-7.7); Neutrophils % (A) 66 %; Platelet Count 296 k/uL (150-450); RBC 4.78 m/uL (4.30-5.90); WBC 7.8 k/uL (3.8-10.6)
--- NOTE | 2023-03-29 13:13 | ED ---
Weakness HPI - General Chief complaint: Weakness Stated complaint: Abnormal Labs, Headache, Chest Pressure Time Seen by Provider: 03/29/23 12:38 Source: patient Mode of arrival: ambulatory - History of Present Illness Initial comments: Patient is a 43-year-old male who presents to the emergency department for weakness. Patient states he has fell off since yesterday with intermittent chest pressure and mild headache. Chest pressure improves with rest and worsened with activity. No shortness of breath, numbness, tingling. No nausea or vomiting. He checked his blood pressure at [facility] today due to feeling unwelll which was in the 150s/110s. Patient has history of hypertension currently on lisinopril take medication as directed. He does not checked his blood pressure at home. Patient does not have other cardiac history. He does have family history of cardiac disease including his grandfather who had myocardial infarction at age 18 which he states was secondary to tuberculosis. Patient is a daily smoker. He has history of amphetamine and cocaine use states he has not used since before going to [place] in May. Patient has never been evaluated by transmission repairer. He has never had a stress test or echo. Patient has a history of hepatitis C he has not started treatment yet. - Related Data Home Medications Medication Instructions Recorded Confirmed SUMAtriptan succinate [Imitrex] 50 mg PO DAILY PRN 02/16/23 03/29/23 lisinopriL [Zestril] 40 mg PO DAILY 03/29/23 03/29/23 Previous Rx's Medication Instructions Recorded Acetaminophen Tab [Tylenol] 650 mg PO Q6HR PRN tab 02/17/23 Aspirin 81 mg PO DAILY #30 tab 02/17/23 Nitroglycerin Sl Tabs [Nitrostat] 0.4 mg SUBLINGUAL Q5M PRN #20 tab 02/17/23 Allergies Allergy/AdvReac Type Severity Reaction Status Date / Time No Known Allergies Allergy Verified 03/29/23 13:26 Review of Systems ROS Statement: Those systems with pertinent positive or pertinent negative responses have been documented in the HPI. ROS Other: All systems not noted in ROS Statement are negative. Past Medical History Past Medical History: Hypertension History of Any Multi-Drug Resistant Organisms: None Reported Additional Past Surgical History / Comment(s): right shoulder, oral surgery, facial surgery. Past Psychological History: No Psychological Hx Reported Smoking Status: Vaper Past Alcohol Use History: None Reported Past Drug Use History: Cocaine, Methamphetamine General Exam General appearance: alert, in no apparent distress Eye exam: Present: normal appearance, PERRL, EOMI. Absent: scleral icterus, conjunctival injection, periorbital swelling Respiratory exam: Present: normal lung sounds bilaterally. Absent: respiratory distress, wheezes, rales, rhonchi, stridor, chest wall tenderness Cardiovascular Exam: Present: regular rate, normal rhythm, normal heart sounds. Absent: systolic murmur, diastolic murmur, rubs, gallop, clicks GI/Abdominal exam: Present: soft, normal bowel sounds. Absent: distended, tenderness, guarding, rebound, rigid Neurological exam: Present: alert, oriented X3, CN II-XII intact Psychiatric exam: Present: normal affect, normal mood Skin exam: Present: warm, dry, intact, normal color. Absent: rash Course Vital Signs 03/29/23 03/29/23 03/29/23 12:29 13:06 14:23 Temperature 98.1 F Pulse Rate 68 56 L 64 Respiratory 18 16 16 Rate Blood Pressure 164/111 162/105 151/97 O2 Sat by Pulse 98 Oximetry 03/29/23 14:40 Temperature Pulse Rate 60 Respiratory 18 Rate Blood Pressure 145/105 O2 Sat by Pulse Oximetry Medical Decision Making - Medical Decision Making EKG taken at 12:30, to prevent myself Normal sinus rhythm, no ST segment or T-wave abnormality Ventricular rate 64, TX interval 153, QRS duration 105, QTC 418 Was pt. sent in by a medical professional or institution (, PA, PERSONAL CLOTHING LAUNDRY AIDE, urgent care, hospital, or [facility]...) When possible be specific @ -No Did you speak to anyone other than the patient for history (EMS, parent, family, police, friend...)? What history was obtained from this source @ -No Did you review nursing and triage notes (agree or disagree)? Why? @ -I reviewed and agree with nursing and triage notes Were old charts reviewed (outside hosp., previous admission, EMS record, old EKG, old radiological studies, urgent care reports/EKG's, mcc records)? Report findings @ -No old charts were reviewed Differential Diagnosis (chest pain, altered mental status, abdominal pain women, abdominal pain men, vaginal bleeding, weakness, fever, dyspnea, syncope, headache, dizziness, GI bleed, back pain, seizure, CVA, palpatations, mental h ealth)? @ -Differential Chest Pain: Stable Angina, Unstable Angina, STEMI, NSTEMI Aortic Dissection, Pneumothorax, Musculoskeletal, Esophageal Spasm GERD, Cholecystitis, Pancreatitis, Zoster, this is not meant to be an all-inclusive list. EKG interpreted by me (3pts min.). @ -As above X-rays interpreted by me (1pt min.). @ -No acute cardiopulmonary process CT interpreted by me (1pt min.). @ -None done U/S interpreted by me (1pt. min.). @ -None done What testing was considered but not performed or refused? (CT, X-rays, U/S, labs)? Why? @ -None What meds were considered but not given or refused? Why? @ -None Did you discuss the management of the patient with other professionals (professionals i.e. , PA, PERSONAL CLOTHING LAUNDRY AIDE, lab, RT, psych nurse, social insurance adviser, harp regulator, teacher, wildlife conservation officer, assistant case manager)? Give summary @ -No Was smoking cessation discussed for >3mins.? @ -No Was critical care preformed (if so, how long)? @ -No Were there social determinants of health that impacted care today? How? (H omelessness, low income, unemployed, alcoholism, drug addiction, transportation, low edu. Level, literacy, decrease access to med. care, detention, rehab)? @ -No Was there de-escalation of care discussed even if they declined (Discuss DNR or withdrawal of care, Hospice)? DNR status @ -No What co-morbidities impacted this encounter? (DM, HTN, Smoking, COPD, CAD, Cancer, CVA, ARF, Chemo, Hep., AIDS, mental health diagnosis, sleep apnea, morbid obesity)? @ -Hypertension Was patient admitted / discharged? Hospital course, mention meds given and route, prescriptions, significant lab abnormalities, going to OR and other pertinent info. @ -Patient presenting for weakness and chest pressure. He is well-appearing vitals are within acceptable limits. Patient is resting comfortably. EKG shows no evidence acute ischemia. Troponin within normal limits. AST and ALT el evated, 111 and 152 respectively, suspect secondary to hepatitis. Patient given Toradol, aspirin, IV fluids with little improvement of chest pressure. We then trialed nitro with minimal relief. Discussed results with patient in detail. Patient does have risk factors for ACS we discussed disposition options patient would like to stay for cardiology evaluation. Case discussed with Dr. Bush who accepts admission cardiology on consult. Undiagnosed new problem with uncertain prognosis? @ -No Drug Therapy requiring intensive monitoring for toxicity (Heparin, Nitro, Insulin, Cardizem)? @ -No Were any procedures done? @ -No Diagnosis/symptom? @ -chest pain, weakness Acute, or Chronic, or Acute on Chronic? @ -Acute Uncomplicated (without systemic symptoms) or Complicated (systemic symptoms)? @ -Uncomplicated Side effects of treatment? @ -No Exacerbation, Progression, or Severe Exacerbation? @ -No Poses a threat to life or bodily function? How? (Chest pain, [place], [place], pneumonia, PE, COPD, DKA, ARF, appy, cholecystitis, CVA, Diverticulitis, Homicidal, Suicidal, threat to staff... and all critical care pts) @ -Yes Dr. Fay is my attending - Lab Data Result diagrams: 03/29/23 12:54 03/29/23 12:54 Lab Results 03/29/23 03/29/23 03/29/23 Range/Units 12:54 12:54 12:54 WBC 7.8 (3.8-10.6) k/uL RBC 4.78 (4.30-5.90) m/uL Hgb 14.5 (13.0-17.5) gm/dL Hct 42.3 (39.0-53.0) % MCV 88.5 (80.0-100.0) fL MCH 30.3 (25.0-35.0) pg MCHC 34.2 (31.0-37.0) g/dL RDW 13.0 (11.5-15.5) % Plt Count 296 (150-450) k/uL MPV 6.9 Neutrophils % 66 % Lymphocytes % 23 % Monocytes % 6 % Eosinophils % 3 % Basophils % 0 % Neutrophils # 5.1 (1.3-7.7) k/uL Lymphocytes # 1.8 (1.0-4.8) k/uL Monocytes # 0.5 (0-1.0) k/uL Eosinophils # 0.2 (0-0.7) k/uL Basophils # 0.0 (0-0.2) k/uL PT 10.8 (9.0-12.0) sec INR 1.0 (<1.2) APTT 25.5 (22.0-30.0) sec Sodium 138 (137-145) mmol/L Potassium 4.3 (3.5-5.1) mmol/L Chloride 105 (98-107) mmol/L Carbon Dioxide 29 (22-30) mmol/L Anion Gap 4 mmol/L BUN 9 (9-20) mg/dL Creatinine 0.78 (0.66-1.25) mg/dL Est GFR (CKD-EPI)AfAm >90 (>60 ml/min/1.73 sqM) Est GFR (CKD-EPI)NonAf >90 (>60 ml/min/1.73 sqM) Glucose 96 (74-99) mg/dL Calcium 9.0 (8.4-10.2) mg/dL Magnesium 1.8 (1.6-2.3) mg/dL Total Bilirubin 0.6 (0.2-1.3) mg/dL AST 111 H (17-59) U/L ALT 153 H (4-49) U/L Alkaline Phosphatase 94 (38-126) U/L Troponin I (0.000-0.034) ng/mL Total Protein 7.3 (6.3-8.2) g/dL Albumin 4.2 (3.5-5.0) g/dL Influenza Type A (PCR) (Not Detectd) Influenza Type B (PCR) (Not Detectd) RSV (PCR) (Not Detectd) SARS-CoV-2 (PCR) (Not Detectd) 03/29/23 03/29/23 Range/Units 12:54 13:06 WBC (3.8-10.6) k/uL RBC (4.30-5.90) m/uL Hgb (13.0-17.5) gm/dL Hct (39.0-53.0) % MCV (80.0-100.0) fL MCH (25.0-35.0) pg MCHC (31.0-37.0) g/dL RDW (11.5-15.5) % Plt Count (150-450) k/uL MPV Neutrophils % % Lymphocytes % % Monocytes % % Eosinophils % % Basophils % % Neutrophils # (1.3-7.7) k/uL Lymphocytes # (1.0-4.8) k/uL Monocytes # (0-1.0) k/uL Eosinophils # (0-0.7) k/uL Basophils # (0-0.2) k/uL PT (9.0-12.0) sec INR (<1.2) APTT (22.0-30.0) sec Sodium (137-145) mmol/L Potassium (3.5-5.1) mmol/L Chloride (98-107) mmol/L Carbon Dioxide (22-30) mmol/L Anion Gap mmol/L BUN (9-20) mg/dL Creatinine (0.66-1.25) mg/dL Est GFR (CKD-EPI)AfAm (>60 ml/min/1.73 sqM) Est GFR (CKD-EPI)NonAf (>60 ml/min/1.73 sqM) Glucose (74-99) mg/dL Calcium (8.4-10.2) mg/dL Magnesium (1.6-2.3) mg/dL Total Bilirubin (0.2-1.3) mg/dL AST (17-59) U/L ALT (4-49) U/L Alkaline Phosphatase (38-126) U/L Troponin I <0.012 (0.000-0.034) ng/mL Total Protein (6.3-8.2) g/dL Albumin (3.5-5.0) g/dL Influenza Type A (PCR) Not Detected (Not Detectd) Influenza Type B (PCR) Not Detected (Not Detectd) RSV (PCR) Not Detected (Not Detectd) SARS-CoV-2 (PCR) Not Detected (Not Detectd) Disposition Clinical Impression: Chest pain, Weakness Disposition: ADMITTED IP TO THIS [facility] Condition: Stable Referrals: Carlos Bush MD [Primary Care Provider] - 1-2 days
[2023-03-29 13:17] LABS: ALT 153 U/L (4-49); AST 111 U/L (17-59); African American GFR (CKD) >90 (>60 ml/min/1.73 sqM); Albumin 4.2 g/dL (3.5-5.0); Alkaline Phosphatase 94 U/L (38-126); Anion Gap 4 mmol/L; Blood Urea Nitrogen 9 mg/dL (9-20); Carbon Dioxide 29 mmol/L (22-30); Chloride 105 mmol/L (98-107); Glucose 96 mg/dL (74-99); Magnesium 1.8 mg/dL (1.6-2.3); Non-African American GFR(CKD) >90 (>60 ml/min/1.73 sqM); Partial Thromboplastin Time 25.5 sec (22.0-30.0); Potassium 4.3 mmol/L (3.5-5.1); Prothrombin Time 10.8 sec (9.0-12.0); Sodium 138 mmol/L (137-145); Total Bilirubin 0.6 mg/dL (0.2-1.3); Total Protein 7.3 g/dL (6.3-8.2)
--- NOTE | 2023-03-29 13:28 | XR ---
EXAMINATION TYPE: XR chest 2V DATE OF EXAM: 03/29/2023 COMPARISON: 02/16/2023 HISTORY: Chest pain TECHNIQUE: Frontal and lateral views of the chest are obtained. FINDINGS: There is no focal air space opacity. No evidence for pneumothorax. No pleural effusion. The cardiac silhouette size is within normal limits. The osseous structures are grossly intact. IMPRESSION: 1. No acute cardiopulmonary process.
[2023-03-29] MEDS ORDERED: NITROGLYCERIN SL TABS 0.4 MG TAB SUBLINGUAL PRN ×2 (13:40→20:06)
[2023-03-29] MEDS ORDERED: ACETAMINOPHEN TAB 325 MG TAB PO PRN (15:15)
[2023-03-29] MEDS ORDERED: NALOXONE 0.4 MG/ML 1 ML VIAL IV PRN (15:15)
[2023-03-29] MEDS: SODIUM CHLORIDE 0.9% 1,000 ML IV SCH (15:29)
[2023-03-30] MEDS: SODIUM CHLORIDE 0.9% 1,000 ML IV SCH (07:29)
[2023-03-30] MEDS: lisinopriL 20 MG TAB PO SCH (08:37)
[2023-03-30] MEDS ORDERED: ASPIRIN 81 MG PO SCH (09:00)
--- NOTE | 2023-03-30 10:04 | P.CRDCN ---
History of Present Illness Consult date: 03/30/23 Consult reason: chest pain History of present illness: History of present illness: This is a 43-year-old male patient with past medical history of hypertension, migraine headaches, history of multi drug abuse and alcohol abuse. No previous cardiac history. We have been asked to evaluate the patient for chest pain. Patient was recently hospitalized on February 17 underwent stress echocardiogram which was normal and echocardiogram revealed normal LV size and systolic function, mild MR, mild TR, trace AR. Patient's initial blood pressure 164/111. Patient states that he was working developed chest pain and generalized not feeling well. He states this is the first episode of chest pain since he was here in February. He denies any cough, no fever no chills, no orthopnea and no PND. He states he has had follow-up with Dr. matthew in had a liver ultrasound done is waiting for further testing. He states relaxing helps his chest pain. Patient states he has not been doing any drugs and no alcohol since he was here in February. He is continuing to smoke. EKG sinus rhythm with no acute ST changes Chest x-ray: No acute process CBC within normal limits. Electrolytes and renal function within normal limits. AST 111 and ALT 153. Troponin negative 1. From last hospitalization: Triglycerides 63, cholesterol 132, LDL 83, HDL 35. Home cardiac medications: Lisinopril 5 mg daily Review Of Systems: At the time of my evaluation: Constitutional: No fever, no chills. No weakness, fatigue or lethargy. EENT: No headache. No dizziness. Lungs: No shortness of breath, cough, no sputum production. No wheezing. Cardiovascular: No chest pain, no lower extremity edema. No palpitations. No paroxysmal nocturnal dyspnea. No orthopnea. No lightheadedness or dizziness. No syncopal episodes. Abdominal: No abdominal pain. No nausea, vomiting. No diarrhea. No constipation. No bloody or tarry stools. Musculoskeletal: No myalgias. No muscle weakness, no frequent falls. No back pain. No neck pain. Integumentary: No wounds. No rash. No unusual bruising. Neurologic: No aphasia. No facial droop. No change in mentation. No head injury. Reports headache. Physical examination: Gen: This is a 43-year-old thin male. He is resting on the ER stretcher appears to be comfortable and in no acute distress. VS: reviewed HEENT: Head is atraumatic, normocephalic. Pupils equal, round. Sclerae is anicteric. Patient edentulous. NECK: Supple. No JVD. . LUNGS: Clear to auscultation. No wheezes or rhonchi. No intercostal retrac tions. HEART: Regular rate and rhythm. No murmur. ABDOMEN: Soft No tenderness. EXTREMITIES: No pedal edema. No calf tenderness. NEUROLOGICAL: Patient is awake, alert and oriented x3. Assessment: Chest pain, acute coronary syndrome ruled out. Chest pain most likely musculoskeletal in etiology Hypertension uncontrolled History of hypertension Migraine headaches History of multi drug and alcohol abuse History of tobacco use Plan: Continue lisinopril at 10 mg daily No need to repeat echocardiogram as this was done in February No need for any further cardiac workup. Cardiology we'll sign off and follow on an as-needed basis. Please reconsult for any new concerns. Patient is cleared for discharge from cardiology. Thank you kindly for this consultation. Nurse practitioner note has been reviewed, I agree with documented findings and plan of care. Patient was seen and examined. Past Medical History Past Medical History: Hypertension History of Any Multi-Drug Resistant Organisms: None Reported Additional Past Surgical History / Comment(s): right shoulder, oral surgery, facial surgery. Past Psychological History: No Psychological Hx Reported Smoking Status: Vaper Past Alcohol Use History: None Reported Past Drug Use History: Cocaine, Methamphetamine Medications and Allergies Home Medications Medication Instructions Recorded Confirmed Type SUMAtriptan succinate [Imitrex] 50 mg PO DAILY PRN 02/16/23 03/29/23 History Acetaminophen Tab [Tylenol] 650 mg PO Q6HR PRN tab 02/17/23 03/29/23 Rx Aspirin 81 mg PO DAILY #30 tab 02/17/23 03/29/23 Rx Nitroglycerin Sl Tabs [Nitrostat] 0.4 mg SUBLINGUAL Q5M PRN #20 tab 02/17/23 03/29/23 Rx lisinopriL [Zestril] 40 mg PO DAILY 03/29/23 03/29/23 History Allergies Allergy/AdvReac Type Severity Reaction Status Date / Time No Known Allergies Allergy Verified 03/29/23 13:26 Physical Exam Vitals: Vital Signs Temp Pulse Resp BP Pulse Ox 03/30/23 06:28 52 L 16 154/89 97 03/30/23 00:26 60 18 143/91 03/29/23 22:40 60 20 150/98 98 03/29/23 19:40 133/93 03/29/23 17:40 62 22 129/89 03/29/23 17:20 57 L 22 130/92 03/29/23 17:16 58 L 18 130/92 98 03/29/23 15:32 66 18 130/92 97 03/29/23 14:40 60 18 145/105 03/29/23 14:23 64 16 151/97 03/29/23 13:06 56 L 16 162/105 03/29/23 12:29 98.1 F 68 18 164/111 98 Results 03/29/23 12:54 03/29/23 12:54 Cardiac Enzymes 03/29/23 03/29/23 Range/Units 12:54 12:54 AST 111 H (17-59) U/L Troponin I <0.012 (0.000-0.034) ng/mL Coagulation 03/29/23 Range/Units 12:54 PT 10.8 (9.0-12.0) sec APTT 25.5 (22.0-30.0) sec CBC 03/29/23 Range/Units 12:54 WBC 7.8 (3.8-10.6) k/uL RBC 4.78 (4.30-5.90) m/uL Hgb 14.5 (13.0-17.5) gm/dL Hct 42.3 (39.0-53.0) % Plt Count 296 (150-450) k/uL Comprehensive Metabolic Panel 03/29/23 Range/Units 12:54 Sodium 138 (137-145) mmol/L Potassium 4.3 (3.5-5.1) mmol/L Chloride 105 (98-107) mmol/L Carbon Dioxide 29 (22-30) mmol/L BUN 9 (9-20) mg/dL Creatinine 0.78 (0.66-1.25) mg/dL Glucose 96 (74-99) mg/dL Calcium 9.0 (8.4-10.2) mg/dL AST 111 H (17-59) U/L ALT 153 H (4-49) U/L Alkaline Phosphatase 94 (38-126) U/L Total Protein 7.3 (6.3-8.2) g/dL Albumin 4.2 (3.5-5.0) g/dL Current Medications Generic Name Dose Route Start Last Admin Trade Name Freq PRN Reason Stop Dose Admin Acetaminophen 650 mg 03/29/23 15:15 Acetaminophen Tab 325 Mg Tab PO Q6HR PRN Mild Pain or Fever > 100.5 Aspirin 81 mg 03/30/23 09:00 Aspirin 81 Mg PO DAILY FLAKO Sodium Chloride 1,000 mls @ 75 mls/hr 03/29/23 15:15 03/29/23 15:29 Saline 0.9% IV 75 mls/hr .[id number] FLAKO Administration Lisinopril 40 mg 03/30/23 09:00 Lisinopril 20 Mg Tab PO DAILY FLAKO Naloxone HCl 0.2 mg 03/29/23 15:15 Naloxone 0.4 Mg/Ml 1 Ml Vial IV Q2M PRN Opioid Reversal Nitroglycerin 0.4 mg 03/29/23 13:40 03/29/23 14:41 Nitroglycerin Sl Tabs 0.4 Mg Tab SUBLINGUAL 0.4 mg Q5M PRN Administration Chest Pain 03/29/23 12:54 03/29/23 12:54
[2023-03-30] MEDS: cloNIDine HCL 0.1 MG TAB PO SCH ×2 (13:31→17:34)
[2023-03-30 15:59] VITALS: BP 125/70; PULSE 67; RESP 16; TEMP 98.4
[2023-03-30 19:07] LABS: Hepatitis C IgG Antibody Reactive (Non-Reactive)
[2023-03-30 20:40] LABS: Hepatitis A Antibody IgM Nonreactive; Hepatitis B Core IgM Nonreactive; Hepatitis B Surface Antigen Nonreactive
--- NOTE | 2023-03-31 01:37 | HP ---
HISTORY AND PHYSICAL CHIEF COMPLAINT: Chest pain. HISTORY OF PRESENT ILLNESS: This is first known admission for this 43-year-old white male. He presented to the emergency room with chest pain, which he described as a heavy or pressure-like sensation with some shortness of breath. No diaphoresis. and troponins were normal. He is admitted for observation. His blood pressure was elevated. REVIEW OF SYSTEMS: He has had no other signs or symptoms such as TIAs, etc. Past medical history, family history, personal and social history revealed he is on lisinopril 5 mg once a day, Abilify 5 mg once a day, Nitrostat, and aspirin. The rest of his history is unremarkable. He has had substance abuse problems in the past with various drugs and was in the [place] for some time. He does continue to smoke. PHYSICAL EXAMINATION: VITAL SIGNS: Blood pressure is 162/98 with a pulse of 80, respirations of 35. He is afebrile. GENERAL: He appeared to be well developed, well nourished, no acute distress. SKIN: Color is normal. Skin is warm and dry. LYMPHATICS: Lymph nodes are not enlarged. HEAD, EARS, EYES, NOSE, MOUTH AND THROAT: Normal. NECK: Neck veins are not distended. Thyroid was not enlarged. CHEST: Clear. CARDIAC: Demonstrates normal sinus rhythm and no murmurs or extra sounds. ABDOMEN: Soft and nontender without any visceromegaly or masses. Bowel sounds present. EXTREMITIES: Normal. NEUROLOGICAL: He is intact. LABORATORY STUDIES: He does have elevated liver function studies. He has a history of hepatitis C. ASSESSMENT: He is admitted to the hospital with diagnoses of: 1. Chest pain. 2. Hypertension. 3. Elevated liver function studies. PLAN: 1. Bed rest. 2. IV fluids. 3. Serial EKGs and enzymes. 4. Control hypertension. 5. Workup elevated liver function studies. MMODL / IJN: [id number] /
--- NOTE | 2023-03-31 03:43 | DS ---
DISCHARGE SUMMARY CHIEF COMPLAINT: Chest pain. HISTORY OF PRESENT ILLNESS AND PHYSICAL EXAMINATION: Details of this man's history and physical can be found in the initial workup. LABORATORY STUDIES: While he was in the hospital, he had laboratory studies, details of which can be found in the laboratory section of his chart. Liver function studies were up. He has a history of hepatitis. Blood pressure was addressed. He was not felt to have any cardiac disease. He was doing well. His blood pressure was down. It was felt that he could go home on the . FINAL DIAGNOSES: 1. Chest pain. 2. Hypertension. 3. Hepatitis C. OPERATIONS: None. CONSULTATION: Cardiology. He is improved. MMODL / IJN: [id number] /
== END 2023-03-30 17:37 | disposition home or self-care (01) ==
LOC: EC 12:03 → 6NMEDSUR 14:53
PROVIDERS: ADMIT Family Medicine; ATTEND Family Medicine
DX: R07.89 Other chest pain (principal); R53.1 Weakness; G43.909 Migraine, unspecified, not intractable, without status migrainosus; I10 Essential (primary) hypertension; B19.20 Unspecified viral hepatitis C without hepatic coma; F17.200 Nicotine dependence, unspecified, uncomplicated; Z20.822 Contact with and (suspected) exposure to COVID-19; Z79.899 Other long term (current) drug therapy; Z79.82 Long term (current) use of aspirin
CPT/HCPCS: 96361 ×3; 96374; 99285; 36415; 94760; 93005; 86803; 86705; 87521; 80053; 80074; 83735; 84484 ×2; 85025; 85610; 85730; 87340; 87636; 71046; G0378 ×2; J1885

== ENCOUNTER → 2023-04-10 | Outpatient (CLI) | payer OTHER ==
[2023-04-10 16:32] LABS: Basophils # (A) 0.08 X 10*3/uL (0.00-0.10); Basophils % (A) 0.9 %; Eosinophils # (A) 0.33 X 10*3/uL (0.04-0.35); Eosinophils % (A) 3.8 %; HCT 46.7 % (39.6-50.0); HGB 15.6 d/dL (12.0-15.0); Lymphocytes # (A) 2.46 X 10*3/uL (0.90-5.00); MCH 30.7 pg (27.0-32.0); MCHC 33.4 d/dL (32.0-37.0); MCV 91.9 FL (80.0-97.0); Mean Platelet Volume 10.3 FL (9.5-12.2); Monocytes # (A) 0.73 X 10*3/uL (0.20-1.00); Monocytes % (A) 8.3 %; NRBC Per 100 WBC 0 X 10*3/uL (0.00-0.01); Neutrophils # (A) 5.16 X 10*3/uL (1.80-7.70); Neutrophils % (A) 58.8 %; Platelet Count 320 X 10*3/uL (140-440); RBC 5.08 X 10*6/uL (4.40-5.60); RDW 12.8 % (11.5-14.5); WBC 8.78 X 10*3/uL (4.50-10.00)
[2023-04-10 17:12] LABS: ALT 173 U/L (10-49); AST 97 U/L (14-35); Albumin 4.7 d/dL (3.8-4.9); Albumin/Globulin Ratio 1.57 Ratio (1.60-3.17); Alkaline Phosphatase 119 U/L (41-126); Blood Urea Nitrogen 10.1 mg/dL (9.0-27.0); Calcium 10.1 mg/dL (8.7-10.3); Chloride 101 mmol/L (96-109); Glucose 81 mg/dL (70-110); Potassium 4.5 mmol/L (3.5-5.5); Sodium 141 mmol/L (135-145); Total Bilirubin 0.3 mg/dL (0.3-1.2); Total Protein 7.7 d/dL (6.2-8.2)
== END | disposition home or self-care (01) ==
LOC: LABWHC1 09:02
PROVIDERS: ATTEND Nurse Practitioner Family
DX: B18.2 Chronic viral hepatitis C (principal)
CPT/HCPCS: 36415; 80053; 82105; 85025; 86704; 87522

== ENCOUNTER 2024-02-07 16:28 | Emergency (ER) | payer OTHER ==
--- NOTE | 2024-02-07 16:48 | ED ---
Upper Extremity HPI - General Source: patient, RN notes reviewed Mode of arrival: ambulatory Limitations: no limitations <Carola Lora - Last Filed: 02/07/24 16:45> <Stanford Lux - Last Filed: 02/07/24 17:21> - General Stated Complaint: R hand injury Time Seen by Provider: 02/07/24 16:45 - History of Present Illness Initial Comments: Quick note: 43-year-old male presented to the ER with chief complaint of right hand injury. Patient states he accidentally crushed his fifth and fourth digits in a steel door. He is endorsing paresthesias to distal tip of fifth digit. Denies any other injuries. (Carola Lora) 43-year-old male with injury to the right fifth digit distal phalanx. Patient had crush this between a steel door. No other injury. (Stanford Lux) - Related Data Home Medications Medication Instructions Recorded Confirmed SUMAtriptan succinate [Imitrex] 50 mg PO DAILY PRN 02/16/23 03/29/23 lisinopriL [Zestril] 40 mg PO DAILY 03/29/23 03/29/23 Previous Rx's Medication Instructions Recorded Acetaminophen Tab [Tylenol] 650 mg PO Q6HR PRN tab 02/17/23 Aspirin 81 mg PO DAILY #30 tab 02/17/23 Nitroglycerin Sl Tabs [Nitrostat] 0.4 mg SUBLINGUAL Q5M PRN #20 tab 02/17/23 cloNIDine HCL [Catapres] 0.1 mg PO TID #30 tab 03/30/23 Ketorolac [Toradol] 10 mg PO Q8HR #15 tab 07/12/23 Orphenadrine [Norflex] 100 mg PO Q12H #14 tab 07/12/23 predniSONE 50 mg PO DAILY #5 tab 07/12/23 Allergies Allergy/AdvReac Type Severity Reaction Status Date / Time No Known Allergies Allergy Verified 07/12/23 08:25 Review of Systems ROS Other: All systems not noted in ROS Statement are negative. <Carola Lora - Last Filed: 02/07/24 16:45> ROS Other: All systems not noted in ROS Statement are negative. <Stanford Lux - Last Filed: 02/07/24 17:21> ROS Statement: Those systems with pertinent positive or pertinent negative responses have been documented in the HPI. Past Medical History Past Medical History: Hypertension Additional Past Medical History / Comment(s): hep c History of Any Multi-Drug Resistant Organisms: None Reported Additional Past Surgical History / Comment(s): right shoulder, oral surgery, facial surgery. Past Psychological History: No Psychological Hx Reported Smoking Status: Vaper Past Alcohol Use History: None Reported Past Drug Use History: Cocaine, Methamphetamine <Carola Lora - Last Filed: 02/07/24 16:45> General Exam <Carola Lora - Last Filed: 02/07/24 16:45> General appearance: alert, in no apparent distress Head exam: Present: atraumatic, normocephalic Eye exam: Present: normal appearance, PERRL ENT exam: Present: normal exam Neck exam: Present: normal inspection. Absent: tenderness, meningismus Respiratory exam: Present: normal lung sounds bilaterally. Absent: respiratory distress, wheezes Cardiovascular Exam: Present: regular rate, normal rhythm GI/Abdominal exam: Present: soft. Absent: distended, tenderness Extremities exam: Present: other (Erythema and swelling to the distal phalanx fifth digit right hand.) Neurological exam: Present: alert, oriented X3 Psychiatric exam: Present: normal affect, normal mood Skin exam: Present: warm, dry, intact <MaciStanford - Last Filed: 02/07/24 17:21> - General Exam Comments Initial Comments: Visual Physical Exam Vital signs reviewed General: Well-appearing, nontoxic, no acute distress. Head: Normocephalic, atraumatic Eyes: PERRLA, EOMI ENT: Airway patent Chest: Nonlabored breathing Skin: No visual rash, normal skin tone Neuro: Alert and oriented 3 Musculoskeletal: No gross abnormalities, edema and bruising to fifth right finger. (Carola Lora) Course Vital Signs 02/07/24 16:56 Temperature 98.1 F Pulse Rate 61 Respiratory 16 Rate Blood Pressure 178/113 O2 Sat by Pulse 98 Oximetry Medical Decision Making <Carola Lora - Last Filed: 02/07/24 16:45> - Medical Decision Making I performed the quick note portion of this chart. Electronically signed by Carola Lora PA-C (Carola Lora) Disposition <Carola Lora - Last Filed: 02/07/24 16:45> Is patient prescribed a controlled substance at d/c from ED?: No Time of Disposition: 17:21 <Stanford Lux - Last Filed: 02/07/24 17:21> Clinical Impression: Crush injury of hand Disposition: HOME SELF-CARE Condition: Good Instructions (If sedation given, give patient instructions): Crush Injury (ED) Referrals: Carlos Bush MD [Primary Care Provider] - 1-2 days
--- NOTE | 2024-02-07 17:17 | XR ---
EXAMINATION TYPE: XR hand complete RT DATE OF EXAM: 02/07/2024 CLINICAL HISTORY: pain TECHNIQUE: Frontal, lateral and oblique images of the right hand are obtained. COMPARISON: None. FINDINGS: There is no acute fracture/dislocation evident. The joint spaces appear within normal limi ts. The overlying soft tissue appears unremarkable. IMPRESSION: There is no acute fracture or dislocation ICD 10 NO FRACTURE, INITIAL EVALUATION
[2024-02-07 18:14] VITALS: BP 154/89; PULSE 80; RESP 18; TEMP 98.2
== END 2024-02-07 17:57 | disposition home or self-care (01) ==
LOC: EC 16:28
DX: S67.21XA Crushing injury of right hand, initial encounter (principal); F17.290 Nicotine dependence, other tobacco product, uncomplicated; W23.0XXA Caught, crushed, jammed, or pinched between moving objects, initial encounter
CPT/HCPCS: 99283